=== PATIENT | female | born 1970 | race Caucasian/White ===

== ENCOUNTER → 2017-07-10 | Outpatient (CLI) | payer OTHER | END | disposition home or self-care (01) | LOC: RAD 12:22 | DX: S92.331A Displaced fracture of third metatarsal bone, right foot, initial encounter for closed fracture (principal); X58.XXXA Exposure to other specified factors, initial encounter; Y93.89 Activity, other specified; Y92.89 Other specified places as the place of occurrence of the external cause; Y99.8 Other external cause status ==

== ENCOUNTER 2017-12-14 20:45 | Emergency (ER) | payer OTHER ==
--- NOTE | ~2017-12-14 | EKG ---
[place], [place] ELECTROCARDIOGRAM REPORT NAME: ELISE HERNANDEZ UNIT #: [id number] ROOM: DOCTOR: ASIF DRAFT REPORT BIRTHDATE: [birth year] [facility] Test Date: 2017-12-14 Test Time: 21:10:25 Pat Name: ELISE HERNANDEZ Department: Room: Gender: F [employer] Operator: Kam Brooks : 1970 Requested By: WAQAS LUCAS Order Number: [id number] Reading MD: Nancy Escalante MD Measurements Intervals [place] Rate: 103 P: 73 TX: 166 QRS: 74 QRSD: 92 T: 0 QT: 343 QTc: 449 Interpretive Statements Sinus tachycardia Borderline repolarization abnormality Electronically Signed On 12-16-2017 14:47:34 PDT by Nancy Escalante MD CM:EKGRPT:ELECTROCARDIOGRAM REPORT [id number] WAQAS GUERRERO DRAFT REPORT WAQAS LUCAS DO
[2017-12-14 21:27] LABS: BASO # 0.1 10*3/uL (0.0-0.1); BASO % 0.3 % (0.0-1.0); EOS % 0.2 % (1.0-4.0); HEMATOCRIT 44.2 % (37.0-47.0); HEMOGLOBIN 15.3 g/dl (12.0-16.0); LYMPH # 1.5 10*3/uL (1.3-4.4); LYMPH % 8.2 % (27.0-41.0); MEAN CELL VOLUME 96.3 fl (81.0-99.0); MEAN CORPUSCULAR HGB 33.3 pg (27.0-31.0); MEAN CORPUSCULAR HGB CONC 34.6 g/dl (33.0-37.0); MONO # 0.9 10*3/uL (0.1-1.0); NEUT # 15.6 10*3/uL (2.3-7.9); NEUT % 85.5 % (47.0-73.0); PLATELET COUNT AUTOMATED 260 10*3/uL (130-400); RED BLOOD COUNT 4.59 10*6/uL (4.10-5.10); WHITE BLOOD COUNT 18.2 10*3/uL (4.8-10.8)
[2017-12-14 21:41] LABS: ALKALINE PHOSPHATASE 68 U/L (45-117); BUN 9 mg/dl (7-24); CHLORIDE 107 mmol/L (98-107); POTASSIUM 3.4 mmol/L (3.5-5.1); SGOT/AST 100 IU/L (3-35); SGPT/ALT 73 U/L (12-78); SODIUM 143 mmol/L (136-145); TOTAL PROTEIN 7.8 gm/dL (6.4-8.2)
[2017-12-14 21:42] LABS: TROPONIN I < 0.015 ng/ml (<0.045)
[2017-12-14] MEDS ORDERED: IBU800 MG PO (22:21)
== END 2017-12-14 23:16 ==
LOC: ED 20:45
PROVIDERS: Student in an Organized Health Care Education/Training Program
DX: S02.2XXA Fracture of nasal bones, initial encounter for closed fracture (principal); S20.219A Contusion of unspecified front wall of thorax, initial encounter; S01.81XA Laceration without foreign body of other part of head, initial encounter; V09.9XXA Pedestrian injured in unspecified transport accident, initial encounter; Y93.89 Activity, other specified; Y92.89 Other specified places as the place of occurrence of the external cause; Y99.8 Other external cause status

== ENCOUNTER → 2020-12-04 | Outpatient (CLI) | payer OTHER ==
[~2020-12-04] MED LIST: IBU800 MG PO
== END | disposition home or self-care (01) ==
LOC: COVID19 15:10
PROVIDERS: ATTEND Internal Medicine
DX: Z11.52 Encounter for screening for COVID-19 (principal)